=== PATIENT | male | born 1985 | race African-American/Black ===

== ENCOUNTER 2020-07-25 04:52 | Observation (INO) | payer OTHER ==
[2020-07-25] MEDS ORDERED: PROPOFOL 20 ML ONE (05:05)
[2020-07-25] MEDS ORDERED: Dextrose 5% in Water 1,000 ML IV PRN (06:11)
[2020-07-25] MEDS ORDERED: Morphine 2 MG/ML VIAL SLOW IVP PRN (06:11)
[2020-07-25] MEDS ORDERED: Ondansetron PF 4 MG/2 ML Vial IVP PRN (06:11)
[2020-07-25] MEDS ORDERED: Dextrose 50% Abboject 50 ML SYRINGE SLOW IVP PRN (06:11)
[2020-07-25] MEDS ORDERED: Sodium Chloride 0.9% 1,000 ML IV SCH (06:15)
[2020-07-25] MEDS ORDERED: traMADol HCl 50 MG TAB PO PRN (06:16)
[2020-07-25] MEDS ORDERED: Acetaminophen 500 MG TAB PO SCH (06:30)
[2020-07-25] MEDS ORDERED: Ibuprofen 200 MG TAB PO SCH ×2 (06:30→12:00)
[2020-07-25 06:36] LABS: #Basophils 0.2 thou/uL (0.0-0.2); #Eosinphils 0.1 thou/uL (0.0-0.7); #Lymphocytes 2.6 thou/uL (1.20-3.40); #Monocytes 0.8 thou/uL (0.11-0.59); %Basophils 1.4 % (0.0-1.0); %Eosinophils 0.6 % (0.0-10.0); %Lymphocytes 24.6 % (21.0-51.0); %Monocytes 7.4 % (0.0-10.0); %Neutrophils 65.9 % (42.0-75.0); Mean Corpuscular HGB CONC 32.1 g/dL (32.0-36.0); Mean Corpuscular Hemoglobin 29.3 pg (27.0-31.0); Mean Corpuscular Volume 91.3 fL (78.0-98.0); Mean Platelet Volume 7.5 fL (7.4-10.4); Platelet Count 214 thou/uL (130-400); RBC Distribution Width 13.6 % (11.5-14.5); Red Blood Cell (RBC) Count 5.47 mill/uL (4.70-6.10); White Blood Cell (WBC) Count 10.7 thou/uL (4.8-10.8)
[2020-07-25 07:00] LABS: ALT (SGPT) 76 U/L (8-55); AST (SGOT) 34 U/L (5-34); Albumin 4.3 g/dL (3.5-5.0); Alkaline Phosphatase 98 U/L (40-110); Anion Gap 14 mmol/L (10-20); BUN (Urea Nitrogen) 8 mg/dL (8.9-20.6); Bilirubin, Total 0.5 mg/dL (0.2-1.2); Calc. Creatinine Clearance 0 mL/min (70-130); Calcium 9.1 mg/dL (7.8-10.44); Carbon Dioxide 25 mmol/L (22-29); Chloride 103 mmol/L (98-107); Globulin 3.1 g/dL (2.4-3.5); Glucose 89 mg/dL (70-105); Phosphorus 3.7 mg/dL (2.3-4.7); Protein, Total 7.4 g/dL (6.0-8.3); Sodium 138 mmol/L (136-145)
[2020-07-25 08:30] VITALS: TEMP 97.9
[2020-07-25] MEDS: traMADol HCl 50 MG TAB PO SCH ×2 (08:38→12:39)
[2020-07-25] MEDS ORDERED: Famotidine 20 MG TAB PO SCH (09:00)
[2020-07-25] MEDS ORDERED: Gabapentin 300 MG CAP PO SCH (09:00)
[2020-07-25] MEDS: Acetaminophen 500 MG TAB PO SCH ×2 (09:59→15:58)
[2020-07-25 11:01] VITALS: BMI 34.4
[2020-07-25 12:03] VITALS: BP 137/72
[2020-07-25 17:01] LABS: SARS-CoV-2 PCR by NAA Not Detected (NotDetected)
== END 2020-07-25 15:59 | disposition home or self-care (01) ==
LOC: ERS 04:52 → SURG A 06:12
PROVIDERS: ADMIT Surgery; ATTEND Surgery
DX: S93.05XA Dislocation of left ankle joint, initial encounter (principal); G89.11 Acute pain due to trauma; I10 Essential (primary) hypertension; F17.210 Nicotine dependence, cigarettes, uncomplicated; Z20.822 Contact with and (suspected) exposure to COVID-19; W10.8XXA Fall (on) (from) other stairs and steps, initial encounter
CPT/HCPCS: 28540; 36415; 80053; 83735; 84100; 85025; 87635; 94760; 99152; G0378; G0390; J2704; U0003; U0005

== ENCOUNTER 2022-07-28 19:30 | Outpatient (CLI) | payer BC, OTHER | END 2022-07-28 19:31 | disposition home or self-care (01) | LOC: SLEEPLAB 19:30 | PROVIDERS: ATTEND Family Medicine | DX: G47.33 Obstructive sleep apnea (adult) (pediatric) (principal); R53.83 Other fatigue; R40.0 Somnolence; R06.83 Snoring; I10 Essential (primary) hypertension | CPT/HCPCS: 95811 ==